=== PATIENT | female | born 1940 | race Asian ===

== ENCOUNTER 2016-10-15 16:00 | Outpatient (CLI) | payer MEDICARE, MEDICAID | END 2016-10-15 16:01 | DX: E10.21 Type 1 diabetes mellitus with diabetic nephropathy (principal) ==

== ENCOUNTER 2017-06-09 13:45 | Outpatient (CLI) | payer MEDICARE, MEDICAID ==
[2017-06-09 19:55] LABS: HEMOGLOBIN A1C 1.23 g/dL
== END 2017-06-09 13:46 | disposition home or self-care (01) ==
LOC: LAB.N 13:45
PROVIDERS: ATTEND Physician Assistant Medical
DX: E10.21 Type 1 diabetes mellitus with diabetic nephropathy (principal)
CPT/HCPCS: 36415; 83036

== ENCOUNTER 2017-10-23 08:00 | Outpatient (CLI) | payer MEDICARE, MEDICAID ==
[2017-10-23 19:27] LABS: CREATININE 1.2 mg/dL (0.4-1.0)
[2017-10-23 19:39] LABS: HB2 TOTAL 16.1 g/dL; HEMOGLOBIN A1C 1.35 g/dL; HEMOGLOBIN A1C % 9.8 % (4.6-6.2)
== END 2017-10-23 08:01 ==
LOC: LAB.N 08:00
PROVIDERS: ATTEND Physician Assistant Medical
DX: E10.21 Type 1 diabetes mellitus with diabetic nephropathy (principal); Z79.4 Long term (current) use of insulin; I10 Essential (primary) hypertension
CPT/HCPCS: 36415; 82043; 82565; 83036; 84443

== ENCOUNTER 2018-03-02 07:37 | Outpatient (CLI) | payer MEDICARE, MEDICAID ==
[2018-03-02 13:09] LABS: HB2 TOTAL 15.3 g/dL; HEMOGLOBIN A1C 1.17 g/dL; HEMOGLOBIN A1C % 9.1 % (4.6-6.2)
== END 2018-03-02 07:38 | disposition home or self-care (01) ==
LOC: LAB.N 07:37
PROVIDERS: ATTEND Physician Assistant Medical
DX: E11.65 Type 2 diabetes mellitus with hyperglycemia (principal)
CPT/HCPCS: 36415; 83036

== ENCOUNTER 2018-06-14 09:13 | Outpatient (CLI) | payer MEDICARE, MEDICAID ==
[2018-06-14 12:57] LABS: CALCIUM 8.7 mg/dL (8.5-10.3)
== END 2018-06-14 23:59 | disposition home or self-care (01) ==
LOC: LAB.N 09:13
PROVIDERS: ATTEND Physician Assistant Medical
DX: E11.65 Type 2 diabetes mellitus with hyperglycemia (principal)
CPT/HCPCS: 36415; 80048

== ENCOUNTER 2019-01-13 13:20 | Outpatient (CLI) | payer MEDICARE, MEDICAID ==
[2019-01-13 18:51] LABS: HGB - HEMOGLOBIN 15.1 g/dL (12.0-16.0); MEAN CORPUSCULAR HEMOGLOBIN 28.7 pg (27.0-31.0); MEAN CORPUSCULAR HGB CONC 33.3 g/dL (32.0-36.0); MEAN CORPUSCULAR VOLUME 86.1 fL (81.0-99.0); MEAN PLATELET VOLUME 10.1 fL (7.9-10.8); RED BLOOD COUNT 5.26 10^6/uL (4.20-5.40); RED CELL DISTRIBUTION WIDTH 12.5 % (12.0-15.0); WHITE BLOOD COUNT 10.5 x10^3/uL (4.8-10.8)
[2019-01-13 19:14] LABS: CALCIUM 9.4 mg/dL (8.5-10.3); CREATININE 1.6 mg/dL (0.4-1.0)
== END 2019-01-13 23:59 | disposition home or self-care (01) ==
LOC: LAB.N 13:20
PROVIDERS: ATTEND Family Medicine
DX: R60.0 Localized edema (principal); R06.09 Other forms of dyspnea; E11.65 Type 2 diabetes mellitus with hyperglycemia; I10 Essential (primary) hypertension
CPT/HCPCS: 36415; 80048; 83880; 85027

== ENCOUNTER 2019-01-25 14:02 | Outpatient (CLI) | payer MEDICARE, MEDICAID ==
[2019-01-25 18:44] LABS: ALBUMIN 3.6 g/dL (3.2-5.5); ALBUMIN/GLOBULIN RATIO 0.8 (1.0-2.2); BILIRUBIN,TOTAL 0.8 mg/dL (0.2-1.0); CALCIUM 9.5 mg/dL (8.5-10.3); CREATININE 1.4 mg/dL (0.4-1.0); TOTAL PROTEIN 8.3 g/dL (6.7-8.2)
== END 2019-01-25 14:10 | disposition home or self-care (01) ==
LOC: LAB.N 14:02
PROVIDERS: ATTEND Family Medicine
DX: N28.9 Disorder of kidney and ureter, unspecified (principal)
CPT/HCPCS: 36415; 80053

== ENCOUNTER 2019-02-18 11:24 | Outpatient (CLI) | payer MEDICARE, MEDICAID ==
--- NOTE | 2019-02-19 23:43 | XRAY Report ---
Reason: SHOULDER JOINT PAIN L Procedure Date: 02/18/2019 Accession Number: [id number] / [id number] Procedure: XRN - Shoulder 3 View LT CPT Code: FULL RESULT: EXAM: LEFT SHOULDER RADIOGRAPHY EXAM DATE: 02/18/2019 11:55 AM. CLINICAL HISTORY: SHOULDER JOINT PAIN L. COMPARISON: None. TECHNIQUE: 3 views. FINDINGS: Bones: No fracture or bone lesion. Decreased osseous mineralization subjectively. Joints: Glenohumeral unremarkable. Mild degenerative changes of the acromioclavicular joint. Soft tissues: Cardiomegaly. IMPRESSION: 1. No acute fractures or malalignment. 2. Decreased osseous mineralization subjectively. RADIA
== END 2019-02-18 11:25 | disposition home or self-care (01) ==
LOC: DI.N 11:24
PROVIDERS: ATTEND Physician Assistant Medical
DX: M19.012 Primary osteoarthritis, left shoulder (principal)

== ENCOUNTER 2019-03-23 11:15 | Outpatient (CLI) | payer MEDICARE, MEDICAID ==
[2019-03-23 18:53] LABS: ALBUMIN 3.5 g/dL (3.2-5.5); ALBUMIN/GLOBULIN RATIO 0.8 (1.0-2.2); BILIRUBIN,TOTAL 1.1 mg/dL (0.2-1.0); CALCIUM 9.1 mg/dL (8.5-10.3); CREATININE 1.3 mg/dL (0.4-1.0); TOTAL PROTEIN 8.1 g/dL (6.7-8.2)
== END 2019-03-23 23:59 | disposition home or self-care (01) ==
LOC: LAB.N 11:15
PROVIDERS: ATTEND Family Medicine
DX: N18.9 Chronic kidney disease, unspecified (principal)
CPT/HCPCS: 36415; 80053

== ENCOUNTER 2019-08-19 09:18 | Outpatient (CLI) | payer MEDICARE, MEDICAID ==
[2019-08-19 13:32] LABS: HB2 TOTAL 15.2 g/dL; HEMOGLOBIN A1C 1.2 g/dL; HEMOGLOBIN A1C % 9.4 % (4.6-6.2)
== END 2019-08-19 23:59 | disposition home or self-care (01) ==
LOC: LAB.N 09:18
PROVIDERS: ATTEND Physician Assistant Medical
DX: E11.65 Type 2 diabetes mellitus with hyperglycemia (principal)
CPT/HCPCS: 36415; 83036

== ENCOUNTER 2020-04-24 07:00 | Outpatient (CLI) | payer MEDICARE, MEDICAID ==
[2020-04-24 19:23] LABS: CREATININE,URINE 107.3 mg/dL; MICROALBUM/CREATININE RATIO,UR 312.2 ug/mg (<30.0); MICROALBUMIN,URINE 33.5 mg/dL (0-300.0)
== END 2020-04-24 23:59 | disposition home or self-care (01) ==
LOC: LAB.R 07:00
PROVIDERS: ATTEND Family Medicine
DX: N30.01 Acute cystitis with hematuria (principal); E11.9 Type 2 diabetes mellitus without complications
CPT/HCPCS: 82043; 82570; 87077; 87086; 87181

== ENCOUNTER 2020-04-27 08:00 | Outpatient (CLI) | payer MEDICARE, MEDICAID ==
[2020-04-27 11:46] LABS: ALBUMIN 3.5 g/dL (3.2-5.5); ALBUMIN/GLOBULIN RATIO 0.7 (1.0-2.2); ALKALINE PHOSPHATASE 107 IU/L (42-121); ALT ALANINE AMINOTRANSFERASE 21 IU/L (10-60); AST ASPARTATE AMINOTRANSFERASE 21 IU/L (10-42); BUN - BLOOD UREA NITROGEN 19 mg/dL (6-20); CALCIUM 9.2 mg/dL (8.5-10.3); CARBON DIOXIDE - CO2 26 mmol/L (21-32); CHLORIDE 102 mmol/L (101-111); CHOL/HDL RATIO 3.7 (<4.4); CHOLESTEROL 176 mg/dL; CREATININE 1.1 mg/dL (0.4-1.0); GLUCOSE 162 mg/dL (70-100); HDL CHOLESTEROL 48 mg/dL; LDL CHOLESTEROL,CALCULATED 101 mg/dL; LDL/HDL RATIO 2.1 (<4.4); SODIUM 139 mmol/L (135-145); TOTAL PROTEIN 8.4 g/dL (6.7-8.2); VLDL CHOLESTEROL 27 mg/dL
[2020-04-27 11:47] LABS: BASOPHILS # (AUTO) 0.1 10^3/uL (0.0-0.1); BASOPHILS % (AUTO) 0.9 %; EOSINOPHILS # (AUTO) 0.4 10^3/uL (0.0-0.7); EOSINOPHILS % (AUTO) 4.1 %; HGB - HEMOGLOBIN 14.2 g/dL (12.0-16.0); LYMPHOCYTES # (AUTO) 3.3 10^3/uL (1.5-3.5); LYMPHOCYTES % (AUTO) 37.1 %; MEAN CORPUSCULAR HEMOGLOBIN 29.3 pg (27.0-31.0); MEAN CORPUSCULAR HGB CONC 33.3 g/dL (32.0-36.0); MEAN PLATELET VOLUME 10.4 fL (7.9-10.8); MONOCYTES # (AUTO) 0.8 10^3/uL (0.0-1.0); MONOCYTES % (AUTO) 8.4 %; NEUTROPHILS # (AUTO) 4.4 10^3/uL (1.5-6.6); NEUTROPHILS % (AUTO) 49.2 %; PLT - PLATELET COUNT 288 10^3/uL (130-450); RED BLOOD COUNT 4.85 10^6/uL (4.20-5.40); RED CELL DISTRIBUTION WIDTH 12.4 % (12.0-15.0)
[2020-04-27 12:15] LABS: HEMOGLOBIN A1c% 8.4 % (4.27-6.07)
== END 2020-04-27 23:59 | disposition home or self-care (01) ==
LOC: LAB.WCP 08:00
PROVIDERS: ATTEND Internal Medicine
DX: E11.65 Type 2 diabetes mellitus with hyperglycemia (principal)
CPT/HCPCS: 36415; 80053; 80061; 83036; 83721; 84443; 85025

== ENCOUNTER 2020-07-27 13:43 | Outpatient (CLI) | payer MEDICARE, MEDICAID ==
--- NOTE | 2020-07-27 16:38 | DEXA Report ---
PROCEDURE: Dexa Spine and/or Hip INDICATIONS: POST MENOPAUSAL, SCREENING FOR OSTEOPOROSIS TECHNIQUE: Dual energy x-ray absorptiometry (DXA) was performed on a [employer] System. Regions measur ed are the AP Spine, femoral neck, and if needed forearm. COMPARISON: None. FINDINGS: Lumbar Spine: Bone Mineral Density 1.164 g/cm/cm,T score -0.1, normal Left Hip: Bone Mineral Density 0.807 g/cm/cm,T score -1.6, mild to moderate osteopenia Left Femoral Neck: Bone Mineral Density 0.695 g/cm/cm, T score -2.5, mild osteoporosis (T score greater or equal to -1.0: NORMAL) (T score from -1.1 to -2.4: OSTEOPENIA) (T score less than or equal to -2.5 to: OSTEOPOROSIS) Impression: Mild osteoporosis within left femoral neck, mild to moderate osteopenia in the left hip. Patients with diagnosis of osteoporosis or osteopenia should have regular bone mineral density assess ment. For those eligible for Medicare, routine testing is allowed once every 2 years. Testing frequ ency can be increased for patients who have rapidly progressing disease or for those who are receivin g medical therapy to restore bone mass. Reviewed by: Lise Ku MD on 07/27/2020 4:36 PM PST Approved by: Lise Ku MD on 07/27/2020 4:36 PM PST Station ID: [id number]
== END 2020-07-27 13:44 | disposition home or self-care (01) ==
LOC: DI 13:43
PROVIDERS: ATTEND Internal Medicine
DX: M81.0 Age-related osteoporosis without current pathological fracture (principal); Z78.0 Asymptomatic menopausal state

== ENCOUNTER 2021-03-27 11:25 | Outpatient (CLI) | payer OTHER, MEDICARE, MEDICAID | END 2021-03-27 11:26 | disposition critical access hospital (66) | LOC: EMS 11:25 | DX: S29.9XXA Unspecified injury of thorax, initial encounter (principal); V89.2XXA Person injured in unspecified motor-vehicle accident, traffic, initial encounter; Y93.I9 Activity, other involving external motion; Y92.410 Unspecified street and highway as the place of occurrence of the external cause | CPT/HCPCS: A0425; A0429 ==

== ENCOUNTER 2021-03-27 11:34 | Emergency (ER) | payer OTHER, MEDICARE, MEDICAID ==
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
[2021-03-27] MEDS ORDERED: HYDROmorphone 0.5 MG/0.5 ML SYRINGE IVP STA (12:55)
[2021-03-27] MEDS ORDERED: HYDROmorphone 1 MG/ML CARPUJECT IVP STA (13:30)
[2021-03-27 14:07] VITALS: BP 160/70
== END 2021-03-27 14:07 | disposition home or self-care (01) ==
LOC: EDUNIT# → ED 11:34
DX: S29.012A Strain of muscle and tendon of back wall of thorax, initial encounter (principal); S20.219A Contusion of unspecified front wall of thorax, initial encounter; V43.62XA Car passenger injured in collision with other type car in traffic accident, initial encounter; W22.12XA Striking against or struck by front passenger side automobile airbag, initial encounter; Y92.410 Unspecified street and highway as the place of occurrence of the external cause; I10 Essential (primary) hypertension; I25.10 Atherosclerotic heart disease of native coronary artery without angina pectoris; E11.9 Type 2 diabetes mellitus without complications; Z79.4 Long term (current) use of insulin; Z79.02 Long term (current) use of antithrombotics/antiplatelets; Z79.82 Long term (current) use of aspirin
CPT/HCPCS: 70450; 71045; 72070; 96374; 99282; 99284; J1170

== ENCOUNTER 2021-06-27 11:21 | Emergency (ER) | payer MEDICARE, MEDICAID ==
--- NOTE | 2021-06-27 11:50 | ED Physician Documentation ---
History of Present Illness - Stated complaint Stated Complaint: CONFUSED - Chief complaint Chief Complaint: General - History obtained from History obtained from: Patient, EMS - History of Present Illness Timing: Today Pain level max: 0 Pain level now: 0 - Additonal information Additional information: 81 year old female with a history of IDDM. Decreased responsiveness today, blood sugar 22. Given D50 by EMS. Still confused per family. Unclear what her baseline mental status is from EMS report. Blood suger 145 upon arrival here. 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 HEENT: Cataracts - Present Medications Home Medications: Ambulatory Orders Medication Instructions Recorded Confirmed Aspirin 81 mg PO DAILY 12/27/12 10/21/13 Atorvastatin Calcium 40 mg PO ONCEDAILY 12/27/12 10/21/13 Carvedilol [Coreg] 3.125 mg PO BID 12/27/12 10/21/13 Clopidogrel [Plavix] 75 mg PO DAILY 12/27/12 10/21/13 glipiZIDE [Glipizide] 10 mg PO ONCEDAILY 12/27/12 10/21/13 lisinopriL [Prinivil] 10 mg PO BID 12/27/12 10/21/13 metFORMIN [Glucophage] 1,000 mg PO BIDWM 12/27/12 10/21/13 Amlodipine Besylate 5 mg PO DAILY 10/07/13 10/21/13 Insulin Aspart [Novolog] 4 unit SQ BIDAC 10/07/13 10/21/13 Insulin Glargine,Hum.rec.anlog 25 unit SQ HS 10/07/13 10/21/13 [Lantus] Ciprofloxacin [Cipro] 500 mg PO BID #20 tablet 10/22/13 HYDROcod/ACETAM 5/325 [Vicodin 1 ea PO Q6H PRN #10 tablet 10/22/13 5/325] cephALEXin [Keflex] 500 mg PO Q6H #20 cap 06/27/21 - Allergies Allergies/Adverse Reactions: Allergies Allergy/AdvReac Type Severity Reaction Status Date / Time No Known Drug Allergies Allergy Verified 06/27/21 11:35 - Social History Does the pt smoke?: No Smoking Status: Never smoker Does the pt drink ETOH?: No Does the pt have substance abuse?: No - Immunizations Immunizations are current?: Yes PD ED PE NORMAL - Vitals Vital signs reviewed: Yes - General General: No acute distress, Well developed/nourished, Other (Alert, oriented to person only) - HEENT HEENT: Atraumatic, PERRL, Moist mucous membranes, Pharynx benign - Neck Neck: Supple, no meningeal sign, No bony TTP - Cardiac Cardiac: RRR - Respiratory Respiratory: No respiratory distress, Clear bilaterally - Abdomen Abdomen: Soft, Non tender, Non distended - Back Back: No spinal TTP - Derm Derm: Warm and dry - Extremities Extremities: No deformity, Normal ROM s pain, No edema, No calf tenderness / cord - Neuro Neuro: Other (Alert, oriented to person only) Results - Vitals Vitals: Vital Signs - 24 hr 06/27/21 06/27/21 11:29 13:52 Temperature 36.5 C Heart Rate 60 58 L Respiratory 18 16 Rate Blood Pressure 145/78 H O2 Saturation 96 95 Oxygen O2 Source Room air - Labs Labs: Laboratory Tests 06/27/21 06/27/21 06/27/21 11:49 11:49 13:00 WBC 9.3 RBC 4.72 Hgb 13.5 Hct 41.3 MCV 87.5 MCH 28.6 MCHC 32.7 RDW 13.0 Plt Count 343 MPV 9.9 Neut # (Auto) 5.6 Lymph # (Auto) 2.6 Emmons # (Auto) 0.7 Eos # (Auto) 0.2 Baso # (Auto) 0.1 Absolute Nucleated RBC 0.00 Nucleated RBC % 0.0 Sodium 140 Potassium 4.4 Chloride 103 Carbon Dioxide 27 Anion Gap 10.0 BUN 28 H Creatinine 1.1 H Estimated GFR (MDRD) 48 L Glucose 123 H Calcium 9.4 Total Bilirubin 0.8 AST 60 H ALT 64 H Alkaline Phosphatase 106 Total Protein 9.3 H Albumin 3.1 L Globulin 6.2 H Albumin/Globulin Ratio 0.5 L Lipase 48 Urine Color YELLOW Urine Clarity SL. CLOUDY Urine pH 5.0 Ur Specific Bly 1.020 Urine Protein TRACE Urine Glucose (UA) NEGATIVE Urine Ketones NEGATIVE Urine Occult Blood NEGATIVE Urine Nitrite NEGATIVE Urine Bilirubin NEGATIVE Urine Urobilinogen 0.2 (NORMAL) Ur Leukocyte Esterase SMALL H Urine RBC 0-5 Urine WBC 11-25 H Ur Squamous Epith Cells NONE SEEN Urine Bacteria Moderate H Ur Microscopic Review INDICATED Urine Culture Comments INDICATED - Rads (name of study) Head CT Radiology: Final report received, EMP read contemporaneously, See rad report (No acute intracranial abnormality) PD MEDICAL DECISION MAKING - ED course Complexity details: reviewed results, re-evaluated patient, considered differential, d/w patient, d/w family ED course: Patient is a 81-year-old female who presents to the emergency department with hypoglycemia earlier today. Her mental status did return to her normal baseline while in the department. Blood sugar remained stable after eating and drinking. She does have a UTI and we will start on antibiotics for this. Head CT does not show any acute abnormalities. No focal neurological deficits. is at bedside and confirms that she is at her normal baseline. Patient and family counseled regarding signs and symptoms for which I believe and urgent re-evaluation would be necessary. Patient with good understanding of and agreement to plan and is comfortable going home at this time This document was made in part using voice recognition software. While efforts are made to proofread this document, sound alike and grammatical errors may occur. Her PCP decreased her long and short acting insulins yesterday, we will have her stop the short acting insulin until her blood sugar stabilized. Departure - Departure Disposition: 01 Home, Self Care Clinical Impression: Hypoglycemia UTI (urinary tract infection) Qualifiers: Urinary tract infection type: acute cystitis Hematuria presence: without hematuria Qualified Code(s): N30.00 - Acute cystitis without hematuria Condition: Good Instructions: ED Diabetes Hypoglycemia Insulin React, ED UTI Cystitis Female Follow-Up: Sheldon Roca MD [Primary Care Provider] - Within 1 week Prescriptions: cephALEXin [Keflex] 500 mg PO Q6H #20 cap Comments: All antibiotics until gone. Continue her long-acting insulin but stop her short acting insulin until the antibiotics are gone. Please follow-up closely with her doctor for further insulin adjustments. Her prescription was sent to [facility] in [place].
[2021-06-27 11:59] LABS: BASOPHILS # (AUTO) 0.1 10^3/uL (0.0-0.1); BASOPHILS % (AUTO) 0.6 %; EOSINOPHILS # (AUTO) 0.2 10^3/uL (0.0-0.7); EOSINOPHILS % (AUTO) 1.9 %; HCT - HEMATOCRIT 41.3 % (37.0-47.0); HGB - HEMOGLOBIN 13.5 g/dL (12.0-16.0); LYMPHOCYTES # (AUTO) 2.6 10^3/uL (1.5-3.5); LYMPHOCYTES % (AUTO) 28.5 %; MEAN CORPUSCULAR HEMOGLOBIN 28.6 pg (27.0-31.0); MEAN CORPUSCULAR HGB CONC 32.7 g/dL (32.0-36.0); MEAN CORPUSCULAR VOLUME 87.5 fL (81.0-99.0); MEAN PLATELET VOLUME 9.9 fL (7.9-10.8); MONOCYTES # (AUTO) 0.7 10^3/uL (0.0-1.0); MONOCYTES % (AUTO) 7.5 %; NEUTROPHILS # (AUTO) 5.6 10^3/uL (1.5-6.6); NEUTROPHILS % (AUTO) 60.9 %; PLT - PLATELET COUNT 343 10^3/uL (130-450); RED BLOOD COUNT 4.72 10^6/uL (4.20-5.40); WHITE BLOOD COUNT 9.3 x10^3/uL (4.8-10.8)
[2021-06-27 12:10] LABS: ALBUMIN 3.1 g/dL (3.2-5.5); ALBUMIN/GLOBULIN RATIO 0.5 (1.0-2.2); BILIRUBIN,TOTAL 0.8 mg/dL (0.2-1.0); CALCIUM 9.4 mg/dL (8.5-10.3); CREATININE 1.1 mg/dL (0.4-1.0); POTASSIUM 4.4 mmol/L (3.5-5.0); TOTAL PROTEIN 9.3 g/dL (6.7-8.2)
[2021-06-27 13:23] LABS: BILIRUBIN,URINE NEGATIVE (NEGATIVE); CLARITY,URINE SL. CLOUDY (CLEAR); GLUCOSE, URINE (UA) NEGATIVE (NEGATIVE); KETONES,URINE (UA) NEGATIVE (NEGATIVE); LEUKOCYTE ESTERASE, URINE SMALL (NEGATIVE); NITRITE,URINE NEGATIVE (NEGATIVE); OCCULT BLOOD,URINE NEGATIVE (NEGATIVE); PROTEIN,URINE TRACE mg/dL (NEGATIVE); UROBILINOGEN,URINE 0.2 (NORMAL) E.U./dL (NORMAL)
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
[2021-06-27 13:37] LABS: BACTERIA,URINE Moderate /HPF (None Seen); RBC,URINE 0-5 /HPF (0-5); SQUAMOUS EPITHELIAL CELL,UR NONE SEEN (<= Few)
[2021-06-27] MEDS ORDERED: ACETAMINOPHEN 325 MG TABLET PO STA (13:41)
[2021-06-27] MEDS ORDERED: cephALEXin 250 MG CAPSULE PO STA (13:41)
[2021-06-27 14:10] VITALS: BP 132/75
== END 2021-06-27 14:23 | disposition home or self-care (01) ==
LOC: EDUNIT# → ED 11:21
DX: E11.649 Type 2 diabetes mellitus with hypoglycemia without coma (principal); N30.00 Acute cystitis without hematuria; Z79.84 Long term (current) use of oral hypoglycemic drugs; Z79.4 Long term (current) use of insulin
CPT/HCPCS: 36415; 70450; 80053; 81001; 83690; 85025; 87077; 87086; 87181; 99283; 99284; A9270; 81003

== ENCOUNTER 2021-07-10 08:00 | Outpatient (CLI) | payer MEDICARE, MEDICAID ==
[2021-07-10 12:11] LABS: ALBUMIN 3.2 g/dL (3.2-5.5); ALBUMIN/GLOBULIN RATIO 0.6 (1.0-2.2); ALKALINE PHOSPHATASE 100 IU/L (42-121); ALT ALANINE AMINOTRANSFERASE 37 IU/L (10-60); AST ASPARTATE AMINOTRANSFERASE 29 IU/L (10-42); BILIRUBIN,TOTAL 0.7 mg/dL (0.2-1.0); BUN - BLOOD UREA NITROGEN 15 mg/dL (6-20); CALCIUM 9.4 mg/dL (8.5-10.3); CARBON DIOXIDE - CO2 28 mmol/L (21-32); CHLORIDE 100 mmol/L (101-111); CHOL/HDL RATIO 4.6 (<4.4); CHOLESTEROL 183 mg/dL; CREATININE 1.1 mg/dL (0.4-1.0); GFR - MDRD 48 (>89); GLUCOSE 192 mg/dL (70-100); HDL CHOLESTEROL 40 mg/dL; LDL CHOLESTEROL,CALCULATED 101 mg/dL; LDL/HDL RATIO 2.5 (<4.4); POTASSIUM 4.3 mmol/L (3.5-5.0); SODIUM 138 mmol/L (135-145); TOTAL PROTEIN 8.7 g/dL (6.7-8.2); TRIGLYCERIDES 210 mg/dL; VLDL CHOLESTEROL 42 mg/dL
[2021-07-10 12:19] LABS: ESTIMATED AVERAGE GLUCOSE 229 mg/dL (70-100); HEMOGLOBIN A1c% 9.6 % (4.27-6.07)
[2021-07-10 12:20] LABS: BASOPHILS # (AUTO) 0.1 10^3/uL (0.0-0.1); BASOPHILS % (AUTO) 1.3 %; EOSINOPHILS # (AUTO) 0.3 10^3/uL (0.0-0.7); EOSINOPHILS % (AUTO) 4.2 %; HCT - HEMATOCRIT 41.1 % (37.0-47.0); HGB - HEMOGLOBIN 13.7 g/dL (12.0-16.0); LYMPHOCYTES # (AUTO) 2.9 10^3/uL (1.5-3.5); LYMPHOCYTES % (AUTO) 38.7 %; MEAN CORPUSCULAR HGB CONC 33.3 g/dL (32.0-36.0); MEAN CORPUSCULAR VOLUME 87.1 fL (81.0-99.0); MEAN PLATELET VOLUME 9.9 fL (7.9-10.8); MONOCYTES # (AUTO) 0.8 10^3/uL (0.0-1.0); MONOCYTES % (AUTO) 10.4 %; NEUTROPHILS # (AUTO) 3.4 10^3/uL (1.5-6.6); NEUTROPHILS % (AUTO) 45.1 %; PLT - PLATELET COUNT 322 10^3/uL (130-450); RED BLOOD COUNT 4.72 10^6/uL (4.20-5.40); RED CELL DISTRIBUTION WIDTH 12.8 % (12.0-15.0); WHITE BLOOD COUNT 7.6 x10^3/uL (4.8-10.8)
== END 2021-07-10 23:59 ==
LOC: LAB.WCP 08:00
PROVIDERS: ATTEND Internal Medicine
DX: I10 Essential (primary) hypertension (principal); E78.5 Hyperlipidemia, unspecified; E11.42 Type 2 diabetes mellitus with diabetic polyneuropathy
CPT/HCPCS: 36415; 80053; 80061; 83036; 83721; 85025

== ENCOUNTER 2021-07-16 08:00 | Outpatient (CLI) | payer MEDICARE, MEDICAID ==
[2021-07-16 19:17] LABS: BILIRUBIN,URINE NEGATIVE (NEGATIVE); GLUCOSE, URINE (UA) NEGATIVE (NEGATIVE); KETONES,URINE (UA) NEGATIVE (NEGATIVE); LEUKOCYTE ESTERASE, URINE MODERATE (NEGATIVE); NITRITE,URINE NEGATIVE (NEGATIVE); OCCULT BLOOD,URINE NEGATIVE (NEGATIVE); PROTEIN,URINE TRACE mg/dL (NEGATIVE); UROBILINOGEN,URINE 0.2 (NORMAL) E.U./dL (NORMAL)
[2021-07-16 19:29] LABS: BACTERIA,URINE Many /HPF (None Seen); CLARITY,URINE SL. CLOUDY (CLEAR); RBC,URINE 0-5 /HPF (0-5); SQUAMOUS EPITHELIAL CELL,UR RARE Squamous (<= Few); WBC CLUMPS,URINE PRESENT; WBC,URINE >25 /HPF (0-5)
[2021-07-16 19:37] LABS: MICROALBUM/CREATININE RATIO,UR 235.8 ug/mg (<30.0); MICROALBUMIN,URINE 15.8 mg/dL (0-300.0)
== END 2021-07-16 23:59 ==
LOC: LAB 08:00
PROVIDERS: ATTEND Internal Medicine
DX: E11.42 Type 2 diabetes mellitus with diabetic polyneuropathy (principal); N30.00 Acute cystitis without hematuria
CPT/HCPCS: 81001; 82043; 82570; 87077; 87086; 87181

== ENCOUNTER 2022-09-15 08:13 | Outpatient (CLI) | payer MEDICARE, MEDICAID ==
[2022-09-15 12:14] LABS: BASOPHILS # (AUTO) 0.1 10^3/uL (0.0-0.1); BASOPHILS % (AUTO) 0.8 %; EOSINOPHILS # (AUTO) 0.3 10^3/uL (0.0-0.7); EOSINOPHILS % (AUTO) 3.1 %; HCT - HEMATOCRIT 41.8 % (37.0-47.0); HGB - HEMOGLOBIN 14.4 g/dL (12.0-16.0); LYMPHOCYTES # (AUTO) 4.9 10^3/uL (1.5-3.5); MEAN CORPUSCULAR HEMOGLOBIN 29.8 pg (27.0-31.0); MEAN CORPUSCULAR HGB CONC 34.4 g/dL (32.0-36.0); MEAN CORPUSCULAR VOLUME 86.4 fL (81.0-99.0); MEAN PLATELET VOLUME 9.9 fL (7.9-10.8); MONOCYTES # (AUTO) 0.9 10^3/uL (0.0-1.0); MONOCYTES % (AUTO) 7.9 %; NEUTROPHILS # (AUTO) 4.9 10^3/uL (1.5-6.6); PLT - PLATELET COUNT 286 10^3/uL (130-450); RED BLOOD COUNT 4.84 10^6/uL (4.20-5.40); RED CELL DISTRIBUTION WIDTH 12.3 % (12.0-15.0)
[2022-09-15 13:00] LABS: ALBUMIN 3.8 g/dL (3.2-5.5); ALBUMIN/GLOBULIN RATIO 0.8 (1.0-2.2); ALKALINE PHOSPHATASE 90 IU/L (42-121); ALT ALANINE AMINOTRANSFERASE 22 IU/L (10-60); AST ASPARTATE AMINOTRANSFERASE 25 IU/L (10-42); BILIRUBIN,TOTAL 0.5 mg/dL (0.2-1.0); BUN - BLOOD UREA NITROGEN 21 mg/dL (6-20); CALCIUM 9.5 mg/dL (8.5-10.3); CARBON DIOXIDE - CO2 27 mmol/L (21-32); CHLORIDE 107 mmol/L (101-111); CHOL/HDL RATIO 3.7 (<4.4); CHOLESTEROL 191 mg/dL; CREATININE 1.3 mg/dL (0.4-1.0); GFR - MDRD 39 (>89); GLUCOSE 78 mg/dL (70-100); HDL CHOLESTEROL 51 mg/dL; LDL CHOLESTEROL,CALCULATED 99 mg/dL; LDL/HDL RATIO 1.9 (<4.4); POTASSIUM 4.1 mmol/L (3.5-5.0); SODIUM 140 mmol/L (135-145); TOTAL PROTEIN 8.5 g/dL (6.7-8.2); TRIGLYCERIDES 207 mg/dL; VLDL CHOLESTEROL 41 mg/dL
[2022-09-15 13:10] LABS: THYROID STIMULATING HORMONE 2.71 uIU/mL (0.34-5.60)
[2022-09-15 13:15] LABS: ESTIMATED AVERAGE GLUCOSE 229 mg/dL (70-100); HEMOGLOBIN A1c% 9.6 % (4.27-6.07)
== END 2022-09-15 08:14 | disposition home or self-care (01) ==
LOC: LAB.N 08:13
PROVIDERS: ATTEND Internal Medicine
DX: E11.42 Type 2 diabetes mellitus with diabetic polyneuropathy (principal); E78.5 Hyperlipidemia, unspecified; Z13.29 Encounter for screening for other suspected endocrine disorder
CPT/HCPCS: 36415; 80053; 80061; 82043; 82570; 83036; 83721; 84443; 85025

== ENCOUNTER 2022-09-16 08:00 | Outpatient (CLI) | payer MEDICARE, MEDICAID ==
[2022-09-16 12:37] LABS: CREATININE,URINE 71.7 mg/dL; MICROALBUM/CREATININE RATIO,UR 78.1 ug/mg (<30.0); MICROALBUMIN,URINE 5.6 mg/dL (0-300.0)
== END 2022-09-16 23:59 | disposition home or self-care (01) ==
LOC: LAB.N 08:00
PROVIDERS: ATTEND Internal Medicine
DX: E11.42 Type 2 diabetes mellitus with diabetic polyneuropathy (principal)
CPT/HCPCS: 82043; 82570

== ENCOUNTER 2022-12-08 09:27 | Outpatient (CLI) | payer MEDICARE, MEDICAID | END 2022-12-08 09:28 | disposition critical access hospital (66) | LOC: EMS 09:27 | DX: M25.462 Effusion, left knee (principal); M79.662 Pain in left lower leg; W18.30XA Fall on same level, unspecified, initial encounter; Z79.02 Long term (current) use of antithrombotics/antiplatelets | CPT/HCPCS: A0425; A0429 ==

== ENCOUNTER 2022-12-08 09:50 | Emergency (ER) | payer MEDICARE, MEDICAID ==
[2022-12-08] MEDS ORDERED: HYDROcod/ACETAM 5/325 MG TABLET PO STA (09:54)
--- NOTE | 2022-12-08 09:55 | ED Physician Documentation ---
PD HPI LOWER EXT INJURY - Stated complaint Stated Complaint: L LEG PX - History obtained from History obtained from: Patient, EMS - History of Present Illness PD HPI LOW EXT INJURY LOCATION: Left (She fell 2 days ago and injured her left leg. She is reportedly not able to walk or bear weight on it. No other injuries. She specifically denies head injury.) PD PAST MEDICAL HISTORY - Past Medical History Cardiovascular: Hypertension, Coronary artery disease Respiratory: None Endocrine/Autoimmune: Type 2 diabetes GI: None : Incontinence, Nocturia, Frequency Psych: None Musculoskeletal: Osteoarthritis Derm: None - Past Surgical History Past Surgical History: Yes /[employer]: Tubal ligation HEENT: Cataracts - Present Medications Home Medications: Ambulatory Orders Medication Instructions Recorded Confirmed Aspirin 81 mg PO DAILY 12/27/12 10/21/13 Atorvastatin Calcium 40 mg PO ONCEDAILY 12/27/12 10/21/13 Carvedilol [Coreg] 3.125 mg PO BID 12/27/12 10/21/13 Clopidogrel [Plavix] 75 mg PO DAILY 12/27/12 10/21/13 glipiZIDE [Glipizide] 10 mg PO ONCEDAILY 12/27/12 10/21/13 lisinopriL [Prinivil] 10 mg PO BID 12/27/12 10/21/13 metFORMIN [Glucophage] 1,000 mg PO BIDWM 12/27/12 10/21/13 Amlodipine Besylate 5 mg PO DAILY 10/07/13 10/21/13 Insulin Aspart [Novolog] 4 unit SQ BIDAC 10/07/13 10/21/13 Insulin Glargine,Hum.rec.anlog 25 unit SQ HS 10/07/13 10/21/13 [Lantus] Ciprofloxacin [Cipro] 500 mg PO BID #20 tablet 10/22/13 HYDROcod/ACETAM 5/325 [Vicodin 1 ea PO Q6H PRN #10 tablet 10/22/13 5/325] cephALEXin [Keflex] 500 mg PO Q6H #20 cap 06/27/21 HYDROcod/ACETAM 5/325 [[place] 5/325] 1 - 2 tab PO Q6H PRN #20 tablet 12/08/22 - Allergies Allergies/Adverse Reactions: Allergies Allergy/AdvReac Type Severity Reaction Status Date / Time No Known Drug Allergies Allergy Verified 12/08/22 09:54 - Social History Does the pt smoke?: No Smoking Status: Never smoker Does the pt drink ETOH?: No Does the pt have substance abuse?: No - Immunizations Immunizations are current?: Yes PD ED PE NORMAL - Vitals Vital signs reviewed: Yes - General General: Alert and oriented X 3, No acute distress - HEENT HEENT: PERRL, EOMI - Neck Neck: Supple, no meningeal sign, No bony TTP - Back Back: No CVA TTP, No spinal TTP - Extremities Extremities: Other (She is quite tender to the tibial plateau on the left, the superior part of the knee a little bit on the left and mildly to the left ankle with edema of the lower leg on that side. There is no deformity.) - Neuro Neuro: Alert and oriented X 3, Normal speech Results - Vitals Vitals: Vital Signs - 24 hr 12/08/22 12/08/22 09:54 12:40 Temperature 37.1 C Heart Rate 89 74 Respiratory 18 19 Rate Blood Pressure 149/82 H 164/58 H O2 Saturation 95 94 Oxygen O2 Source Room air - Rads (name of study) x-ray of the left femur, knee, and tib-fib shows a possible tibial spines fracture of the left knee. CT recommended Relevant Findings:: Final report received, EMP independent interpretation of test CT left lower extremity demonstrates mildly comminuted and displaced tibial fracture Relevant Findings:: Final report received, EMP independent interpretation of test PD Medical Decision Making - ED course ED course: 82-year-old woman after a fall with isolated left leg injury. Imaging as above. Case discussed by phone with our on-call orthopedist, Dr Rivas who recommended weightbearing as tolerated with a knee immobilizer and nonoperative/conservative management. I discussed with family by phone. They had some concerns about taking her home and we discussed with him that it was not unreasonable to seek SNF placement if they were unable to care for her. Subsequently they picked up the patient. Departure - Departure Disposition: 01 Home, Self Care Clinical Impression: Fracture of proximal end of tibia Qualifiers: Encounter type: initial encounter Fracture type: closed Fracture morphology: other fracture Laterality: left Qualified Code(s): S82.192A - Other fracture of upper end of left tibia, initial encounter for closed fracture Condition: Good Record reviewed to determine appropriate education?: Yes Instructions: ED Fx Knee Follow-Up: Orthopedic Care [Provider Group] - Within 1 week Prescriptions: HYDROcod/ACETAM 5/325 [[place] 5/325] 1 - 2 tab PO Q6H PRN #20 tablet PRN Reason: Pain Comments: I sent your prescriptions to [facility] in [place]. Followup with ORTHOPEDICS, call today for appointment. You can bear weight as tolerated, but we expect it to be quite painful for her for a time. You should wear the splint when up and around, do not need to wear it when just in bed. I am prescribing a short course of narcotic pain medication for you. These are potentially dangerous and addictive medications that should be used carefully. These medications may constipate you. Take an gibs-dso-uofqfai stool softener (docusate) twice daily with plenty of water while taking these medications. If you go 24 hours without a bowel movement, take [id number] miralax, per package instructions. Do not drink or drive while taking these medications. If you received narcotic or sedating medications while in the emergency department, do not drive for 24 hours. Store this medication in a safe, secure place and out of reach of children. It is a violation of federal law to give or sell this medication to another person or to use in a manner other than prescribed. The ED will not refill narcotic prescriptions, including prescriptions lost or stolen. To dispose of unwanted medications: 1. [facility] provides a drop box for medication in pill form only (no liquids) 8:00 am to 4:30 p.m. Thursday-Thursday in the lobby of the [facility], [address] [place] [address]. Empty pills into ziplock bag before disposal. Call [phone] for information. 2.[employer] is a free service available to all [facility] residents. Go to [email or web address] Note that many narcotic pain relievers also contain Tylenol/acetaminophen. Please ensure that your total dose of acetaminophen from all sources does not exceed 3 g (3000 mg) per day.
--- NOTE | 2022-12-08 10:55 | XRAY Report ---
PROCEDURE: Femur 2V LT INDICATIONS: leg inj TECHNIQUE: AP and lateral views of the femur were acquired. COMPARISON: Left knee from the same date, which includes the lower femur FINDINGS: Bones: No fractures or dislocations. No suspicious bony lesions. Soft tissues: No suspicious soft tissue calcifications or masses. Extensive arterial vascular calcif ications. IMPRESSION: No acute bony abnormality. Peripheral vascular disease. Reviewed by: Butch Muñiz MD on 12/08/2022 10:54 AM PDT Approved by: Butch Muñiz MD on 12/08/2022 10:54 AM PDT Station ID: [id number]
--- NOTE | 2022-12-08 10:58 | XRAY Report ---
PROCEDURE: Knee 4 View LT INDICATIONS: leg inj TECHNIQUE: 4 views of the left knee(s) were acquired. COMPARISON: None. FINDINGS: Bones: Question tibial spine fracture at the knee joint. However, this may be artifactual, as there is no significant knee joint effusion. No suspicious bony lesions. Soft tissues: No knee joint effusion. No suspicious soft tissue calcifications or masses. IMPRESSION: Question articular fracture involving the tibial spines. This is uncertain. Consider CT Knee if suspe ct fracture. Reviewed by: Butch Muñiz MD on 12/08/2022 10:56 AM PDT Approved by: Butch Muñiz MD on 12/08/2022 10:56 AM PDT Station ID: [id number]
--- NOTE | 2022-12-08 10:59 | XRAY Report ---
PROCEDURE: Tib/Fib LT INDICATIONS: leg inj TECHNIQUE: 2 views of the tibia and fibula were acquired. COMPARISON: Left knee from the same date. FINDINGS: Bones: Question tibial spine fracture at the knee joint. This is not definite. No other fractures or dislocations. Soft tissues: No suspicious soft tissue calcifications or masses. IMPRESSION: Question tibial spine fracture at the knee joint. Consider CT knee. Reviewed by: Butch Muñiz MD on 12/08/2022 10:58 AM PDT Approved by: Butch Muñiz MD on 12/08/2022 10:58 AM PDT Station ID: [id number]
[2022-12-08 12:44] VITALS: BP 164/58
--- NOTE | 2022-12-08 13:05 | CT Report ---
PROCEDURE: LOWER EXTREMITY WO - LT INDICATIONS: Suspected fracture of the tibial spines on x-ray TECHNIQUE: Noncontrast 3-mm axial sections acquired from the distal tibial shaft to the talar dome, with coronal and sagittal reformats. For radiation dose reduction, the following was used: automated exposure c ontrol, adjustment of mA and/or kV according to patient size. COMPARISON: Left knee plain films of the left femur plain films and left tibia and fibula plain film s from same day. FINDINGS: Image quality: Excellent. Bones: There is a mildly comminuted tibial plateau fracture involving the medial tibial plateau and tibial spines with minimally displaced fracture fragments in the joint space. The fracture is somewha t posterior in location on the tibial articular surface. Soft tissues: Mild to moderate knee joint effusion. Impression: Mildly comminuted, mildly displaced tibial fracture involving the medial tibial plateau a nd tibial spines. Reviewed by: Butch Muñiz MD on 12/08/2022 1:04 PM PDT Approved by: Butch Muñiz MD on 12/08/2022 1:04 PM PDT Station ID: [id number]
== END 2022-12-08 14:56 | disposition home or self-care (01) ==
LOC: EDUNIT# → EDSEX → ED 09:50
DX: S82.102A Unspecified fracture of upper end of left tibia, initial encounter for closed fracture (principal); W19.XXXA Unspecified fall, initial encounter; I10 Essential (primary) hypertension; I25.10 Atherosclerotic heart disease of native coronary artery without angina pectoris; E11.9 Type 2 diabetes mellitus without complications; Z79.899 Other long term (current) drug therapy; Z79.02 Long term (current) use of antithrombotics/antiplatelets; Z79.84 Long term (current) use of oral hypoglycemic drugs; Z79.4 Long term (current) use of insulin
CPT/HCPCS: 73552; 73564; 73590; 73700; 99284; A9270

== ENCOUNTER 2022-12-23 12:36 | Outpatient (CLI) | payer MEDICARE, MEDICAID | END 2022-12-23 12:37 | disposition EMS.NT | LOC: EMS 12:36 | DX: E11.649 Type 2 diabetes mellitus with hypoglycemia without coma (principal) ==

== ENCOUNTER 2023-01-26 08:00 | Outpatient (CLI) | payer MEDICARE, MEDICAID ==
--- NOTE | 2023-01-27 09:06 | XRAY Report ---
PROCEDURE: Knee 4 View LT INDICATIONS: LEFT TIBIAL SPINE FRACTURE TECHNIQUE: 4 views of the left knee(s) were acquired. COMPARISON: CT left lower extremity and left knee radiographs 12/08/2022 FINDINGS: Bones: Similar alignment of previously demonstrated medial tibial plateau/tibial spine fracture. Soft tissues: Small knee joint effusion. Vascular calcifications are present. IMPRESSION: Similar alignment of previously demonstrated medial tibial plateau/tibial spine fracture. Reviewed by: Luis Mahoney MD on 01/27/2023 9:05 AM PDT Approved by: Luis Mahoney MD on 01/27/2023 9:05 AM PDT Station ID: [id number]
== END 2023-01-26 23:59 | disposition home or self-care (01) ==
LOC: DI.WOS 08:00
PROVIDERS: ATTEND Orthopaedic Surgery
DX: S82.112D Displaced fracture of left tibial spine, subsequent encounter for closed fracture with routine healing (principal)

== ENCOUNTER 2023-02-25 07:46 | Outpatient (CLI) | payer MEDICARE, MEDICAID ==
[2023-02-25 12:04] LABS: CALCIUM 9.7 mg/dL (8.5-10.3); POTASSIUM 4.1 mmol/L (3.5-4.5)
[2023-02-25 12:08] LABS: ESTIMATED AVERAGE GLUCOSE 197 mg/dL (70-100); HEMOGLOBIN A1c% 8.5 % (4.27-6.07)
== END 2023-02-25 07:47 | disposition home or self-care (01) ==
LOC: LAB.N 07:46
PROVIDERS: ATTEND Internal Medicine
DX: E11.42 Type 2 diabetes mellitus with diabetic polyneuropathy (principal)
CPT/HCPCS: 36415; 80048; 83036